=== PATIENT | male | born 1980 | race Caucasian/White ===

== ENCOUNTER 2021-08-20 22:13 | Emergency (ER) | payer OTHER ==
--- NOTE | 2021-08-20 22:50 | NUR ---
CALLED TO TRIAGE, NO ANSWER
--- NOTE | 2021-08-20 23:05 | NUR ---
CALLEDT TO TRIAGE, NO ANSWER
--- NOTE | 2021-08-20 23:19 | NUR ---
CALLED TO TRIAGE, NO ANSWER; [facility]BS
--- NOTE | 2021-08-20 23:19 | NUR ---
PATIENT LEFT WITHOUT BEING SEEN BY DR. Crocker. NO FURTHER CARE PROVIDED FOR PATIENT.
== END 2021-08-20 23:39 | disposition left against medical advice (07) ==
LOC: MED 22:13
DX: R00.0 Tachycardia, unspecified (principal); Z53.21 Procedure and treatment not carried out due to patient leaving prior to being seen by health care provider